=== PATIENT | female | born 1960 | race African-American/Black ===

== ENCOUNTER 2018-03-31 13:43 | Emergency (ER) | payer MEDICAID ==
[~2018-03-31] VITALS: Ht 154.9 cm; Wt 72.0 kg
[2018-03-31 13:46] VITALS: BP 145/94
== END 2018-03-31 15:22 | disposition left against medical advice (07) ==
LOC: ER 13:44
DX: R07.9 Chest pain, unspecified (principal); F41.9 Anxiety disorder, unspecified; R06.02 Shortness of breath; Z53.21 Procedure and treatment not carried out due to patient leaving prior to being seen by health care provider
CPT/HCPCS: 71045; 93005; 99281